=== PATIENT | female | born 1945 ===

== ENCOUNTER → 2021-10-06 09:25 | Outpatient (CLI) | payer MEDICARE, SELFPAY ==
--- NOTE | ~2021-10-06 | MR_ITS ---
EXAMINATION: MR MRCP wo con/w 3D wo ind pp DATE: 10/06/2021 13:56 INDICATION: Gallstones. TECHNIQUE: Magnetic resonance imaging (MRI) of the abdomen was performed without intravenous contrast . Sequences included coronal T2-weighted FS FSE, coronal T2-weighted FSE, axial T1-weighted LAVA, cor onal FS FIESTA, axial dual-echo T1-weighted SPGR, coronal lava-FLEX, sagittal T2-weighted FSE, axial T2-weighted FSE, and axial DWI. Thick-slab T2-weighted FSE images were obtained for magnetic resonanc e cholangiopancreatography (MRCP). Maximum intensity projection 3-D reconstructions of the volumetric data were created by the technologist. COMPARISON: None. FINDINGS: ABDOMEN MRI: The liver is normal. There are gallstones in the gallbladder, which is normal in size. T here is a 7 mm lesion of increased T2-weighted signal intensity in the spleen, likely benign. The layne creatic duct is dilated to 7 mm in the body of the pancreas, and there are dilated pancreatic duct si dechains, consistent with chronic pancreatitis. The adrenal glands are normal. There are cysts in the kidneys measuring up to 8 mm on the left. There are no dilated loops of bowel. There are no patholog ically enlarged lymph nodes. There is no free intraperitoneal fluid. There is severe lumbar spondylos is. ABDOMEN MRCP: The common duct is normal and measures 6 mm. No choledocholithiasis. IMPRESSION: 1. Cholelithiasis. No evidence of acute cholecystitis. 2. Chronic pancreatitis. Reviewed, dictated and finalized at location A. [facility]
[2021-10-06 10:03] LABS: Estimated Glomerular Filt Rate 34
== END ==
PROVIDERS: Visit Provider Internal Medicine Geriatric Medicine
DX: K80.20 Calculus of gallbladder without cholecystitis without obstruction (principal); K86.1 Other chronic pancreatitis
CPT/HCPCS: 74181; 76376